=== PATIENT | male | born 1975 | race Two or more races ===

== ENCOUNTER → 2018-06-16 | Outpatient (CLI) | payer BC ==
--- NOTE | 2018-06-17 07:48 | RADIOLOGY REPORT ---
STRESS TEST REPORT [id number] ROOM#: DATE OF SERVICE: 06/16/2018 AGE: ORDER#: REFERRING MD: INDICATION: Assessment of burning chest pains. CLINICAL HISTORY: Coronary risk factors include hypertension. Current medications include lisinopril, omeprazole. REPORT Significant CV findings prior to stress testing showed a blood pressure of 139/94 with 185 BPM with no ectopy. Auscultation of the heart showed an S4 with no murmur. Resting 12-lead EKG showed NSR 89 BPM, ST elevations, normal variant. PROCEDURE: The patient exercised under standard Daniel protocol. He walked a total of 9 minutes and 30 seconds on this protocol, reaching a peak heart rate of 181 BPM, which is 101% of the maximum predicted heart rate for age. The test was stopped because of maximum heart rate achieved. The patient described no symptoms of any burning chest pain during, at peak exercise, and post exercise. Exercise ECG showed no ST depressions to suggest ischemia. No arrhythmia seen. Blood pressure response was normal, at peak exercise the peak blood pressure was 195/71 and Double Product 31.2K. SUMMARY OF FINDINGS/IMPRESSION: 1. No chest pain or burning symptoms were reproduced. 2. No EKG evidence of ischemia. 3. Normal blood pressure response. 4. No arrhythmias. 5. Good exercise tolerance, good aerobic capacity. Negative maximum EKG treadmill stress test. INTERPRETING PHYSICIAN: MILY AGUERO M.D. /: [id number] TT: 1306 ID: [id number] /: [id number] TD: 0930 JOB: [id number] cc:MILY AGUERO M.D. > MTDD
== END ==
LOC: RAD 08:00
PROVIDERS: ATTEND Nurse Practitioner Family
DX: I10 Essential (primary) hypertension (principal)
CPT/HCPCS: 93017